=== PATIENT | male | born 1980 | race Caucasian/White ===

== ENCOUNTER 2021-07-26 17:48 | Emergency (ER) | payer OTHER ==
[~2021-07-26] VITALS: Ht 180.3 cm; Wt 106.8 kg
--- NOTE | 2021-07-26 18:10 | PHYS DOC ---
Past History Past Medical History COVID infection Dx Thur. 07/22. Home tested 07/26 negative General Adult EDM: Chief Complaint: COUGH HPI: HPI: Patient is a 40 year old male with 17 years in the [facility] who presents with above hx of cough and + Hx of covid. Patient tested positive on 07/22. is also positive for COVID. Patient has not had any overseas travel. Patient states cough does have a productive sputum now. His who is a nurse advised him to go to the emergency room be evaluated. Patient does have some wheezing, rhonchi and productive cough. Patient has not had any travel out of state. Did go to [place] this weekend with his friends. . Patient denies any further myalgia arthralgia or fevers. Does have some fatigue and malaise. Patient n ormally follows at [place]. Review of Systems: Review of Systems: Constitutional: Prior weekend fever or chills Eyes: Denies change in visual acuity HENT: Denies nasal congestion or sore throat Respiratory: Complains of cough and wheezing Cardiovascular: Denies chest pain or edema GI: Denies abdominal pain, nausea, vomiting, bloody stools or diarrhea : Denies dysuria Musculoskeletal: Denies back pain or joint pain Integument: Denies rash Neurologic: Denies headache, focal weakness or sensory changes Endocrine: Denies polyuria or polydipsia Lymphatic: Denies swollen glands Psychiatric: Denies depression or anxiety Family History: Family History: has COVID Current Medications: Current Meds: See nursing for home meds Allergies: Allergies: Allergies Coded Allergies Type Severity Reaction Last Updated Verified No Known Drug Allergies 07/26/21 No Physical Exam: PE: Constitutional: Well developed, well nourished, no acute distress, non-toxic appearance. [] HENT: Normocephalic, atraumatic, bilateral external ears normal, oropharynx moist, no oral exudates, nose normal. [] Eyes: PERRLA, EOMI, conjunctiva normal, no discharge. [] Neck: Normal range of motion, no tenderness, supple, no stridor. [] Cardiovascular:Heart rate regular rhythm, no murmur [] Lungs & Thorax: Bilateral breath sounds equal with some wheezes and scattered rhonchi on auscultation [] Abdomen: Bowel sounds normal, soft, no tenderness, no masses, no pulsatile masses. [] Skin: Warm, dry, no erythema, no rash. [] Back: No tenderness, no CVA tenderness. [] Extremities: No tenderness, no cyanosis, no clubbing, ROM intact, no edema. [] No cording appreciated Neurologic: Alert and oriented X 3, normal motor function, normal sensory function, no focal deficits noted. [] Psychologic: Affect anxious, judgement normal, mood normal. [] EKG: EKG: [] Radiology/Procedures: Radiology/Procedures: [][address] [address] IMAGING REPORT Signed PATIENT: ADEOLA BANKS ACCOUNT: [id number] : 1980 LOCATION: ER AGE: 40 SEX: M EXAM STATUS: REG ER ORD. PHYSICIAN: WALLY CROCKETT MD REASON: cough PROCEDURE: PORTABLE CHEST 1V EXAM: XR CHEST 1V 07/26/2021 6:22 PM CLINICAL INDICATION: Cough COMPARISON: None TECHNIQUE: AP view of the chest FINDINGS: The heart is normal in size. The lungs are hypoexpanded with mild bibasilar atelectasis. No consolidation, pleural effusion, or pneumothorax. IMPRESSION: Hypoexpanded lungs. No acute abnormality. Electronically signed by: Bessie Powell MD (07/26/2021 7:17 PM) [facility] DICTATED AND SIGNED BY: BESSIE POWELL MD DATE: 07/26/211916 CC: WALLY CROCKETT MD; PCP,NO ~ IMAGING REPORT Signed PATIENT: ADEOLA BANKS ACCOUNT: [id number] : 1980 LOCATION: ER AGE: 40 SEX: M EXAM STATUS: REG ER ORD. PHYSICIAN: WALLY CROCKETT MD REASON: Hx. Dyspnea, + COVID last week PROCEDURE: CT ANGIOGRAPHY CHEST Study: CT CHEST WITH CONTRAST - PULMONARY ANGIOGRAM History: Dyspnea, Covid positive. Comparison: Chest radiograph same day Technique: Helical CT of the chest performed after the administration of 75 mL intravenous contrast and timed for angiographic evaluation of the pulmonary arteries per PE protocol. Coronal and sagittal 3D MIP reformations were obtained. One or more of the following individualized dose reduction techniques were utilized for this examination: 1. Automated exposure control 2. Adjustment of the mA and/or kV according to patient size 3. Use of iterative reconstruction technique. Findings: Pulmonary Arteries: Contrast bolus is adequate. There is no acute pulmonary embolism. Heart/Systemic Vasculature: The heart is normal in size. Thoracic aorta is no rmal in caliber. Mediastinum: No mediastinal or hilar lymphadenopathy. Lungs: The lungs are clear. There is no evidence of pneumonia. No pleural effusion or pneumothorax. Neck/Axilla/Body Wall: No axillary lymphadenopathy. The thyroid gland is normal. Upper Abdomen: Unremarkable. Bones: No acute osseous abnormality. Miscellaneous: None. IMPRESSION: No acute pulmonary embolism or evidence of pneumonia. Electronically signed by: Bessie Powell MD (07/26/2021 7:56 PM) [facility] DICTATED AND SIGNED BY: BESSIE POWELL MD DATE: 07/26/211952 CC: WALLY CROCKETT MD; PCP,NO ~ Heart Score: C/O Chest Pain: N/A Risk Factors: Risk Factors: DM, Current or recent (<one month) smoker, HTN, HLP, family history of CAD, obesity. Risk Scores: Score 0 - 3: 2.5% MACE over next 6 weeks - Discharge Home Score 4 - 6: 20.3% MACE over next 6 weeks - Admit for Clinical Observation Score 7 - 10: 72.7% MACE over next 6 weeks - Early Invasive Strategies Course & Med Decision Making: Course & Med Decision Making Pertinent Labs and Imaging studies reviewed. (See chart for details) Use MDI 2 puffs 4 times a day. Follow-up primary care. Take Zithromax 250 a day..x5. Follow up at [place]. Return if any concerns. Impression: 1. Hx of COVID - Dx on 07/19/21 2. Bronchiectasis [] Dragon Disclaimer: Garcia Disclaimer: This electronic medical record was generated, in whole or in part, using a voice recognition dictation system. Departure Departure: Referrals: PCP,NO (PCP) Scripts Azithromycin (ZITHROMAX) 250 Mg Tablet 250 MG PO DAILY for ANTI-BIOTIC for 5 Days, #5 TAB 0 Refills Prov: WALLY CROCKETT MD 07/26/21 Dragon Disclaimer This chart was dictated in whole or in part using Voice Recognition software in a busy, high-work load, and often noisy Emergency Department environment. It may contain unintended and wholly unrecognized errors or omissions. WALLY CROCKETT MD July 26, 2021 18:10
[2021-07-26] MEDS ORDERED: ALBUTEROL SULFATE 8GM INHALER. INH ONE (18:15)
[2021-07-26] MEDS ORDERED: IOHEXOL 350 MG/ML 100 ML VIAL. IV ONE (19:15)
[2021-07-26] MEDS ORDERED: AZITHROMYCIN 250 MG TABLET. PO ONE (19:15)
--- NOTE | 2021-07-26 19:20 | RAD ---
EXAM: XR CHEST 1V 07/26/2021 6:22 PM CLINICAL INDICATION: Cough COMPARISON: None TECHNIQUE: AP view of the chest FINDINGS: The heart is normal in size. The lungs are hypoexpanded with mild bibasilar atelectasis. N o consolidation, pleural effusion, or pneumothorax. IMPRESSION: Hypoexpanded lungs. No acute abnormality. Electronically signed by: Bessie Powell MD (07/26/2021 7:17 PM) [facility]
--- NOTE | 2021-07-26 19:58 | RAD ---
Study: CT CHEST WITH CONTRAST - PULMONARY ANGIOGRAM History: Dyspnea, Covid positive. Comparison: Chest radiograph same day Technique: Helical CT of the chest performed after the administration of 75 mL intravenous contrast and timed for angiographic evaluation of the pulmonary arteries per PE protocol. Coronal and sagittal 3D MIP reformations were obtained. One or more of the following individualized dose reduction techniques were utilized for this examinat ion: 1. Automated exposure control 2. Adjustment of the mA and/or kV according to patient size 3. Use of iterative reconstruction technique. Findings: Pulmonary Arteries: Contrast bolus is adequate. There is no acute pulmonary embolism. Heart/Systemic Vasculature: The heart is normal in size. Thoracic aorta is normal in caliber. Mediastinum: No mediastinal or hilar lymphadenopathy. Lungs: The lungs are clear. There is no evidence of pneumonia. No pleural effusion or pneumothorax. Neck/Axilla/Body Wall: No axillary lymphadenopathy. The thyroid gland is normal. Upper Abdomen: Unremarkable. Bones: No acute osseous abnormality. Miscellaneous: None. IMPRESSION: No acute pulmonary embolism or evidence of pneumonia. Electronically signed by: Bessie Powell MD (07/26/2021 7:56 PM) [facility]
[2021-07-26 20:55] VITALS: BP 122/81
[2021-07-26] MEDS ORDERED: AZIT250T PO (21:00)
== END 2021-07-26 21:09 | disposition home or self-care (01) ==
LOC: ER 17:48
DX: J47.9 Bronchiectasis, uncomplicated (principal); Z86.16 Personal history of COVID-19
CPT/HCPCS: 71045; 71275; 94640; 99285; Q9967; 94664